=== PATIENT | female | born 1960 | race Caucasian/White ===

== ENCOUNTER → 2017-01-15 | Outpatient (CLI) | payer BC, OTHER ==
[~2017-01-15] MED LIST: /WARF25TA PO; ACET50TA PO; ASPI1TAB; BAYE325T12; LISI5TAB PO; PERC7.5T12 PO; VENTAER INH
--- NOTE | 2017-01-15 16:00 | REPMRS ---
Patient History The patient states she had a clinical breast exam in 2016. Patient is postmenopausal. Family history of breast cancer in maternal grandmother at age 60 and endometrial cancer in paternal grandmother at age 61. Outside priors scanned in Digital Mammo Screening Bilat: January 15, 2017 - Exam #: [id number] Bilateral CC and MLO view(s) were taken. Technologist: Faina Devi, Technologist Prior study comparison: January 02, 2016, bilateral digital mammo screening bilat, performed at [facility]. FINDINGS: There are scattered fibroglandular densities. There has been no change in the appearance of the mammogram from the prior studies. There is a mild amount of residual fibroglandular tissue which is fairly symmetric. There is no interval development of dominant mass, architectural distortion, or clustered microcalcification suggestive of malignancy. Scattered lymph nodes are seen in the right axilla. No significant changes when compared with prior studies. ASSESSMENT: BI-RADS/ACR category 2 mammogram. Benign finding(s). Recommendation Routine screening mammogram in 1 year (for women over age 40). This mammogram was interpreted with the aid of an FDA-approved computer-aided dectection system. A. Negative x-ray reports should not delay biopsy if a dominant or clinically suspicious mass is present. B. Four to eight percent of cancers are not identified by mammography. C. Adenosis and dense breast may obscure an underlying neoplasm. Electronically Signed By: Yaya Xie MD 01/15/17 [id number]
== END ==
LOC: M RAD 13:39
PROVIDERS: ATTEND Family Medicine
DX: Z12.31 Encounter for screening mammogram for malignant neoplasm of breast (principal); Z78.0 Asymptomatic menopausal state

== ENCOUNTER → 2018-01-18 | Outpatient (CLI) | payer BC, OTHER | LOC: M RAD 13:51 | DX: Z12.31 Encounter for screening mammogram for malignant neoplasm of breast (principal); R92.0 Mammographic microcalcification found on diagnostic imaging of breast | CPT/HCPCS: 77067 ==

== ENCOUNTER → 2018-07-01 | Outpatient (REF) | payer OTHER, SELFPAY ==
[2018-07-08 14:16] LABS: HPV LOW VOL RFLX Negative (Negative)
== END ==
LOC: M LAB REF 10:11
DX: Z01.419 Encounter for gynecological examination (general) (routine) without abnormal findings (principal); Z11.51 Encounter for screening for human papillomavirus (HPV); N95.2 Postmenopausal atrophic vaginitis
CPT/HCPCS: G0123

== ENCOUNTER → 2019-01-19 | Outpatient (CLI) | payer OTHER ==
--- NOTE | 2019-01-19 15:49 | REPMRS ---
Patient History The patient states she had a clinical breast exam in 2017. Family history of breast cancer at age 60 in maternal grandmother, endometrial cancer at age 61 in paternal grandmother. Digital Mammo Screening Bilat: January 19, 2019 - Exam #: [id number] Bilateral CC and MLO view(s) were taken. Technologist: Mary Friend, Technologist Prior study comparison: January 18, 2018, bilateral digital mammo screening bilat performed at [facility]. January 15, 2017, bilateral digital mammo screening bilat performed at [facility]. January 02, 2016, bilateral digital mammo screening bilat, performed at [facility]. FINDINGS: There are scattered fibroglandular densities. There has been no change in the appearance of the mammogram from the prior studies. There is a mild amount of scattered fibroglandular density which is fairly symmetric. There is no interval development of dominant mass, architectural distortion, or clustered microcalcification suggestive of malignancy. 3-D tomosynthesis shows no additional findings. Assessment: BI-RADS/ACR category 1 mammogram. Negative Mammogram. Recommendation Routine screening mammogram of both breasts in 1 year (for women over age 40). This patient's Lifetime Breast Cancer RIsk is estimated at 15.6 %. This mammogram was interpreted with the aid of an FDA-approved computer-aided dectection system. Electronically Signed By: Noble Zhou MD 01/19/19 [id number]
== END ==
LOC: M RAD 14:41
PROVIDERS: ATTEND Physician Assistant
DX: Z12.31 Encounter for screening mammogram for malignant neoplasm of breast (principal)

== ENCOUNTER → 2020-01-25 | Outpatient (CLI) | payer OTHER ==
[~2020-01-25] MED LIST changes: -/WARF25TA PO; -ACET50TA PO; +COUM1TAB18 PO; +MAPA500T17 PO
--- NOTE | 2020-01-25 16:20 | REPMRS ---
Patient History The patient states she had a clinical breast exam in June 2019. Family history of breast cancer at age 60 in maternal grandmother, endometrial cancer at age 61 in paternal grandmother. Digital Woman Screen Mammo: January 25, 2020 - Exam #: [id number] Bilateral CC and MLO view(s) were taken. Technologist: Mary Friend, Technologist Prior study comparison: January 19, 2019, bilateral digital mammo screening bilat, performed at [facility]. January 18, 2018, bilateral digital mammo screening bilat, performed at [facility]. January 15, 2017, bilateral digital mammo screening bilat, performed at [facility]. FINDINGS: There are scattered fibroglandular densities. There has been no change in the appearance of the mammogram from the prior studies. There is a mild amount of scattered fibroglandular density which is fairly symmetric. There is no interval development of dominant mass, architectural distortion, or grouped microcalcification suggestive of malignancy. 3-D tomosynthesis shows no additional findings. Assessment: BI-RADS/ACR category 1 mammogram. Negative Mammogram. Recommendation Routine screening mammogram of both breasts in 1 year (for women over age 40). This patient's Lifetime Breast Cancer Risk is estimated at 15.2 %. This mammogram was interpreted with the aid of an FDA-approved computer-aided dectection system. Electronically Signed By: Noble Zhou MD 01/25/20 [id number]
== END ==
LOC: M WHC 14:16
PROVIDERS: ATTEND Physician Assistant
DX: Z12.31 Encounter for screening mammogram for malignant neoplasm of breast (principal)

== ENCOUNTER → 2021-01-29 | Outpatient (CLI) | payer OTHER ==
--- NOTE | 2021-01-29 15:36 | REPMRS ---
Patient History The patient states she had a clinical breast exam in June 2020. Family history of breast cancer at age 60 in maternal grandmother, endometrial cancer at age 61 in paternal grandmother. Digital Woman Screen Mammo: January 29, 2021 - Exam #: [id number] Bilateral CC and MLO view(s) were taken. Technologist: Mary Friend, Technologist Prior study comparison: January 25, 2020, bilateral digital woman screen mammo performed at [facility]. January 19, 2019, bilateral digital mammo screening bilat, performed at [facility]. January 18, 2018, bilateral digital mammo screening bilat, performed at [facility]. FINDINGS: There are scattered fibroglandular densities. The Volpara volumetric breast density category is:B. There has been no change in the appearance of the mammogram from the prior studies. There is a mild amount of scattered fibroglandular density which is fairly symmetric. There is no interval development of dominant mass, architectural distortion, or grouped microcalcification suggestive of malignancy. 3-D tomosynthesis shows no additional findings. Assessment: BI-RADS/ACR category 1 mammogram. Negative Mammogram. Recommendation Routine screening mammogram of both breasts in 1 year (for women over age 40). This patient's [facility] Lifetime Breast Cancer Risk is estimated at 14.8 %. This mammogram was interpreted with the aid of an FDA-approved computer-aided dectection system. Electronically Signed By: Noble Zhou MD 01/29/21 0239
== END ==
LOC: M WHC 14:47
PROVIDERS: ATTEND Physician Assistant
DX: Z12.31 Encounter for screening mammogram for malignant neoplasm of breast (principal)

== ENCOUNTER → 2022-03-04 | Outpatient (CLI) | payer OTHER | LOC: M WHC 13:53 | PROVIDERS: ATTEND Family Medicine | DX: Z12.31 Encounter for screening mammogram for malignant neoplasm of breast (principal); Z13.820 Encounter for screening for osteoporosis ==

== ENCOUNTER → 2023-03-06 | Outpatient (CLI) | payer OTHER | LOC: M WHC 14:02 | PROVIDERS: ATTEND Family Medicine | DX: Z12.31 Encounter for screening mammogram for malignant neoplasm of breast (principal) ==

== ENCOUNTER → 2023-03-25 | Outpatient (CLI) | payer OTHER | LOC: M WHC 13:56 | PROVIDERS: ATTEND Family Medicine | DX: R92.8 Other abnormal and inconclusive findings on diagnostic imaging of breast (principal) ==

== ENCOUNTER → 2024-03-28 | Outpatient (CLI) | payer OTHER | LOC: M WHC 13:52 | PROVIDERS: ATTEND Family Medicine | DX: Z12.31 Encounter for screening mammogram for malignant neoplasm of breast (principal); M81.0 Age-related osteoporosis without current pathological fracture ==

== ENCOUNTER → 2024-08-30 | Outpatient (REF) | payer OTHER | LOC: M LAB REF 17:08 | PROVIDERS: ATTEND Nurse Practitioner Adult Health | DX: N39.0 Urinary tract infection, site not specified (principal) ==

== ENCOUNTER → 2025-04-12 | Outpatient (CLI) | payer MEDICARE, OTHER | LOC: M WHC 13:58 | PROVIDERS: ATTEND Family Medicine | DX: Z12.31 Encounter for screening mammogram for malignant neoplasm of breast (principal); R92.313 Mammographic fatty tissue density, bilateral breasts ==